=== PATIENT | male | born 1995 | race Asian ===

== ENCOUNTER 2019-02-19 22:23 | Emergency (ER) | payer OTHER ==
[~2019-02-19] VITALS: Ht 175.3 cm; Wt 76.4 kg
[2019-02-19 22:24] VITALS: BP 121/76
[2019-02-20] MEDS ORDERED: CLOTCRE3 TOP (00:03)
== END 2019-02-20 00:07 | disposition home or self-care (01) ==
LOC: M ED 22:23
DX: L50.2 Urticaria due to cold and heat (principal); B35.4 Tinea corporis; Z86.19 Personal history of other infectious and parasitic diseases; J30.81 Allergic rhinitis due to animal (cat) (dog) hair and dander